=== PATIENT | female | born 1990 | race Caucasian/White ===

== ENCOUNTER 2024-07-02 14:32 | Inpatient (IN) | payer OTHER ==
[2024-07-02 15:50] VITALS: BP 94/51
[2024-07-02] MEDS ORDERED: RINGERS SOLUTION,LACTATED 1,000 ML IV SCH (16:15)
[2024-07-02 16:38] LABS: HEMATOCRIT 33.5 % (36.0-45.00); HEMOGLOBIN 11.3 g/dL (12.0-15.00); MEAN CELL VOLUME 84.9 fL (80.00-100.00); MEAN CORPUSCULAR HEMOGLOBIN 28.6 pg (27.00-32.0); MEAN CORPUSCULAR HGB CONC 33.7 g/dl (32.0-36.0); PLATELET COUNT 354 K/uL (150-450); RED BLOOD COUNT 3.95 M/uL (4.00-6.00); RED CELL DISTRIBUTION WIDTH 14.1 % (11.5-14.5)
[2024-07-02 16:55] LABS: INR < 0.93; PARTIAL THROMBOPLASTIN TIME 25.6 SECONDS (22.0-34.0); PROTHROMBIN TIME 10.2 SECONDS (9.0-11.5)
[2024-07-02] MEDS ORDERED: BETAMETHASONE ACETATE,SOD PHOS 30 MG/5 ML ML IM SCH (18:00)
[2024-07-02] MEDS ORDERED: MAGNESIUM SULFATE IN WATER 500 ML IV SCH (18:00)
[2024-07-02] MEDS ORDERED: MAGNESIUM SULFATE IN WATER 0.04 GM/ML IV.SOLN IV ONE (18:06)
[2024-07-02] MEDS ORDERED: OBSTETRIX DHA1 EAC1 (18:22)
[2024-07-02] MEDS ORDERED: REGLAN5 MG/5 ML PO (18:23)
[2024-07-02 20:47] VITALS: BP 105/71
[2024-07-02] MEDS ORDERED: ACETAMINOPHEN 500 MG GEL..CAP PO PRN (22:00)
[2024-07-02 23:37] VITALS: BP 101/61
[2024-07-03 03:43] VITALS: BP 103/57
[2024-07-03 07:16] VITALS: BP 96/60
[2024-07-03] MEDS ORDERED: CEFAZOLIN SODIUM 1,000 MG VIAL ONE (10:07)
[2024-07-03] MEDS ORDERED: OXYTOCIN 10 UNITS/ML VIAL ONE ×2 (10:18→13:44)
[2024-07-03] MEDS ORDERED: ERYTHROMYCIN BASE 1 GM TUBE OP ONE (10:18)
[2024-07-03] MEDS ORDERED: CEFAZOLIN SODIUM 1,000 MG VIAL IV SCH (10:30)
[2024-07-03] MEDS ORDERED: RINGERS SOLUTION,LACTATED 1,000 ML IV SCH (11:00)
[2024-07-03] MEDS ORDERED: MORPHINE SULFATE 4 MG/ML CARTRIDGE IV PRN (11:00)
[2024-07-03] MEDS ORDERED: OXYTOCIN 1,000 ML IV ONE (11:00)
[2024-07-03] MEDS ORDERED: KETOROLAC TROMETHAMINE 30 MG VIAL IV SCH (12:00)
[2024-07-03] MEDS ORDERED: ACETAMINOPHEN 500 MG GEL..CAP PO SCH (12:00)
[2024-07-03] MEDS ORDERED: KETOROLAC TROMETHAMINE 30 MG VIAL IV ONE (12:05)
[2024-07-03] MEDS ORDERED: KETOROLAC TROMETHAMINE 30 MG VIAL ONE (12:16)
[2024-07-03] MEDS ORDERED: MEPERIDINE HCL 25 MG/ML AMPUL IV ONE (12:35)
[2024-07-03] MEDS ORDERED: MORPHINE SULFATE 4 MG/ML VIAL IV ONE (13:40)
[2024-07-03 14:54] VITALS: BP 104/67
[2024-07-03 16:00] VITALS: BP 104/67
[2024-07-03] MEDS ORDERED: SIMETHICONE 125 MG CAPSULE PO SCH (17:00)
[2024-07-03] MEDS ORDERED: GABAPENTIN 300 MG CAPSULE PO SCH (17:00)
[2024-07-04 01:00] VITALS: BP 89/53
[2024-07-04] MEDS ORDERED: OxyCODONE HCL 5 MG TABLET (ROXICODONE) PO PRN (08:00)
[2024-07-04] MEDS ORDERED: KETOROLAC TROMETHAMINE 10 MG TABLET PO SCH (08:00)
[2024-07-04 08:02] LABS: HEMATOCRIT 27.1 % (36.0-45.00); HEMOGLOBIN 9.3 g/dL (12.0-15.00); MEAN CORPUSCULAR HGB CONC 34.1 g/dl (32.0-36.0); PLATELET COUNT 330 K/uL (150-450); RED BLOOD COUNT 3.19 M/uL (4.00-6.00); RED CELL DISTRIBUTION WIDTH 14.1 % (11.5-14.5)
[2024-07-04 08:32] VITALS: BP 92/55
[2024-07-04] MEDS ORDERED: DOCUSATE SODIUM 100MG CAP PO SCH (09:00)
[2024-07-04 16:00] VITALS: BP 108/70
[2024-07-04 20:00] VITALS: BP 107/73
[2024-07-05] VITALS: BP 96/57
[2024-07-05 09:06] VITALS: BP 95/55
[2024-07-05 16:28] VITALS: BP 112/74
[2024-07-05 20:47] VITALS: BP 100/63
[2024-07-06 01:15] VITALS: BP 98/66
[2024-07-06 06:31] VITALS: BP 105/67
[2024-07-06 09:00] VITALS: BP 108/71
[2024-07-06] MEDS ORDERED: DIPHENHYDRAMINE HCL/ZINC ACET 28.3 GM CREAM.GM. TOP SCH (13:00)
[2024-07-06 15:57] VITALS: BP 105/69
== END 2024-07-06 19:12 | disposition home or self-care (01) | DRG 786 ==
LOC: NST 14:32 → OBS/DEL 14:32 → LDR 17:49 → OB/GYN 07-03 12:16
PROVIDERS: Obstetrics & Gynecology; ADMIT Obstetrics & Gynecology Gynecology; ATTEND Obstetrics & Gynecology Gynecology
PROC: 4A1HXCZ Monitoring of Products of Conception, Cardiac Rate, External Approach (ICD-10-PCS; 2024-07-02)
PROC: 10D00Z1 Extraction of Products of Conception, Low, Open Approach (ICD-10-PCS; principal; 2024-07-03 10:00)
DX: O36.8130 Decreased fetal movements, third trimester, not applicable or unspecified (principal); O60.14X0 Preterm labor third trimester with preterm delivery third trimester, not applicable or unspecified; O82 Encounter for cesarean delivery without indication; Z3A.30 30 weeks gestation of pregnancy; Z37.0 Single live birth; Z20.822 Contact with and (suspected) exposure to COVID-19